=== PATIENT | female | born 2000 | race Caucasian/White ===

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

== ENCOUNTER 2019-03-07 15:25 | Emergency (ER) | payer SELFPAY ==
[2019-03-07 15:34] VITALS: RESP 20; O2SAT 99
[2019-03-07] MEDS ORDERED: DiphenhydrAMINE 50 mg/ml Inj IVP STA (16:40)
[2019-03-07] MEDS ORDERED: DiphenhydrAMINE 50 mg/ml Inj ONE (16:56)
[2019-03-07 17:20] LABS: BASO # 0.1 K/uL (0.0-0.2); BASO % 0.8 % (0.0-2.0); EOS # 0.1 K/uL (0.0-0.7); EOS % 1.8 % (0.0-4.0); LYMPH # 1.5 K/uL (1.0-4.3); LYMPH % 19.5 % (20.0-40.0); MEAN CELL VOLUME 88.4 fL (81.0-99.0); MEAN CORPUSCULAR HEMOGLOBIN 29.5 pg (27.0-31.0); MEAN CORPUSCULAR HGB CONC 33.4 g/dL (33.0-37.0); MEAN PLATELET VOLUME 10.2 fL (7.2-11.7); MONO # 0.6 K/uL (0.0-0.8); NEUT # 5.5 K/uL (1.8-7.0); NEUT % 69.9 % (50.0-75.0); RBC 4.74 Mil/uL (3.80-5.20); RED CELL DISTRIBUTION WIDTH 14.3 % (11.5-14.5); WHITE BLOOD COUNT 7.8 K/uL (4.8-10.8)
--- NOTE | 2019-03-07 17:33 | C.PDOC ---
History Of Present Illness 19 year old female presents to the ED with 1 week history of headache. Patient describes the pain as a throbbing in the forehead. Patient also complains of associated nausea, vomiting, and dizziness. Patient states that she drinks every day and does cocaine often. She states that he has been taking Tylenol at home for her headache with minimal relief. She also complains of having blurry vision. Patient denies fever, neck pain, trauma, loss of consciousness, numbness, weakness. Time Seen by Provider: 03/07/19 15:47 Chief Complaint (Nursing): Headache History Per: Patient History/Exam Limitations: no limitations Onset/Duration Of Symptoms: Days (7) Current Symptoms Are (Timing): Still Present Quality: Aching Associated Symptoms: Blurred Vision, Nausea, Vomiting, Other (dizziness) Past Medical History Reviewed: Historical Data, Nursing Documentation, Vital Signs Vital Signs: Last Vital Signs Temp 97.7 F 03/07/19 15:31 Pulse 87 03/07/19 15:31 Resp 20 03/07/19 15:31 BP 136/84 03/07/19 15:31 Pulse Ox 99 03/07/19 15:31 - Medical History PMH: Asthma, Depression Denies: Diabetes, Hepatitis, HIV, HTN, Chronic Kidney Disease, Seizures, Sexually Transmitted Disease Surgical History: Appendectomy (2004) - [employer] Procedures GROUP PSYCHOTHERAPY (12/29/14) INDIVIDUAL PSYCHOTHERAPY, INTERACTIVE (12/29/14) Family History: States: Unknown Family Hx - Social History Hx Tobacco Use: No Hx Alcohol Use: Yes Hx Substance Use: Yes - Immunization History Hx Tetanus Toxoid Vaccination: No Hx Influenza Vaccination: No Hx Pneumococcal Vaccination: No Review Of Systems Constitutional: Negative for: Fever Gastrointestinal: Positive for: Nausea, Vomiting Musculoskeletal: Negative for: Neck Pain Neurological: Positive for: Headache, Dizziness. Negative for: Weakness, Numbness Physical Exam - Physical Exam Appears: Non-toxic, No Acute Distress, Other (in mild pain/ distress) Skin: Normal Color, Warm, Dry, No Rash Head: Atraumatic, Normacephalic Eye(s): bilateral: Normal Inspection, PERRL, EOMI Ear(s): Bilateral: Normal Oral Mucosa: Moist Throat: Normal, No Erythema, No Exudate Neck: Normal ROM, Supple Chest: Symmetrical, No Deformity Cardiovascular: Rhythm Regular, No Friction Rub, No Murmur Respiratory: No Accessory Muscle Use, No Rales, No Rhonchi, No Wheezing Gastrointestinal/Abdominal: Soft, No Tenderness Back: Normal Inspection, No CVA Tenderness Extremity: Normal ROM, No Tenderness, Capillary Refill (<2 seconds), No Swelling Pulses: Left Radial: Normal, Right Radial: Normal Neurological/Psych: Oriented x3, Normal Speech, Normal Cognition, Normal Motor, Normal Sensation Gait: Steady ED Course And Treatment - Laboratory Results Result Diagrams: 03/07/19 17:14 03/07/19 17:14 O2 Sat by Pulse Oximetry: 99 (in RA) Pulse Ox Interpretation: Normal Medical Decision Making Medical Decision Making: Impression: 19 year old female presents to the ED with 1 week history of headache Plan: Head CT ordered for patient Labs ordered with BMP, CBC, and UA Patient given Benadryl and Reglan Disposition - Disposition Referrals: [facility] [Outside] Disposition: HOME/ ROUTINE Disposition Time: 18:42 Condition: STABLE Additional Instructions: Follow up with the medical doctor within 1-2 days., Return if worsened/ Prescriptions: Acetaminophen/Butalbital/Caf [Fioricet] 1 tab PO TID PRN #20 tab PRN Reason: Headache Metoclopramide [Reglan] 1 tab PO TID PRN #25 tab PRN Reason: Nausea/Vomiting Instructions: Migraine Headache (DC) Forms: [facility] [employer] (Jordanian) - Clinical Impression Clinical Impression: Migraine - Scribe Statement The provider has reviewed the documentation as recorded by the Scribe (Tonya Bedoya) All medical record entries made by the Scribe were at my direction and personally dictated by me. I have reviewed the chart and agree that the record accurately reflects my personal performance of the history, physical exam, medical decision making, and the department course for this patient. I have also personally directed, reviewed, and agree with the discharge instructions and d isposition.
[2019-03-07 17:36] LABS: HCG,QUALITATIVE URINE NEGATIVE (NEGATIVE)
[2019-03-07 17:39] LABS: SQUAMOUS EPITHIAL 8 /hpf (0-5); URINE BILIRUBIN NEGATIVE (NEGATIVE); URINE BLOOD NEGATIVE (NEGATIVE); URINE CLARITY Hazy (Clear); URINE COLOR Amber (YELLOW); URINE GLUCOSE (UA) NORMAL (Normal); URINE LEUKOCYTE ESTERASE NEG Leu/uL (Negative); URINE PROTEIN 1+ mg/dL (NEGATIVE); URINE UROBILINOGEN NORMAL mg/dL (0.2-1.0)
[2019-03-07 17:52] LABS: BLOOD UREA NITROGEN 13 mg/dL (7-17); CALCIUM 9.6 mg/dl (8.6-10.4); GFR NON-AFRICAN AMERICAN > 60
[2019-03-07 18:06] LABS: BARBITURATES, UR NEGATIVE (NEGATIVE); BENZODIAZEPINES, UR NEGATIVE (NEGATIVE); OPIATES, UR NEGATIVE (NEGATIVE); PHENCYCLIDINE, UR NEGATIVE (NEGATIVE)
--- NOTE | 2019-03-07 18:22 | CT ---
Date of service: 03/07/2019 PROCEDURE: CT HEAD WITHOUT CONTRAST. HISTORY: Headache x 1 week, vomiting COMPARISON: Noncontrast head CT performed 05/05/17 TECHNIQUE: Axial computed tomography images were obtained through the head/brain without intravenous contrast. Radiation dose: Total exam DLP = 1094.96 mGy-cm. This CT exam was performed using one or more of the following dose reduction techniques: Automated exposure control, adjustment of the mA and/or kV according to patient size, and/or use of iterative reconstruction technique. FINDINGS: HEMORRHAGE: No intracranial hemorrhage. BRAIN: No mass effect or edema. No atrophy or chronic microvascular ischemic changes. VENTRICLES: No hydrocephalus. CALVARIUM: Unremarkable. PARANASAL SINUSES: Unremarkable as visualized. No significant inflammatory changes. MASTOID AIR CELLS: Unremarkable as visualized. No inflammatory changes. OTHER FINDINGS: None. IMPRESSION: No acute intracranial pathology identified.
[2019-03-07 18:36] VITALS: BP 112/73; PULSE 65; TEMP 97.9
== END 2019-03-07 18:55 | disposition home or self-care (01) ==
LOC: C.ER 15:25
DX: G43.909 Migraine, unspecified, not intractable, without status migrainosus (principal)
CPT/HCPCS: 70450; 80048; 81001; 82948; 84703; 85025; 96374; 96375; 99285; G0480; J1200; J2765